=== PATIENT | male | born 1960 | race Caucasian/White ===

== ENCOUNTER 2021-02-13 14:50 | Inpatient (IN) | payer SELFPAY ==
[~2021-02-13] VITALS: Ht 165.1 cm; Wt 73.8 kg
--- NOTE | 2021-02-13 15:24 | NUR ---
PT. ARRIVES BY [facility] WITH C/O DIFFICULTY BREATHING, RA SATS 82%, HYPOXIA, FEVER, FATIGUE AND CP ONSET X 2 DAYS AGO. HIS 3 SONS AND ARE ILL WELL. PT A&O, RESPS EVEN AND UNLABORED, WILBERTO.
[2021-02-13] MEDS ORDERED: ACETAMINOPHEN 500 MG TABLET ONE (15:33)
[2021-02-13] MEDS ORDERED: CEFTRIAXONE 1,000 MG in DEXTROSE 5% 50 ML IVPB ONE (16:00)
[2021-02-13] MEDS ORDERED: SODIUM CHLORIDE FLUSH 10ML SYR IVF ONE (16:00)
[2021-02-13] MEDS ORDERED: ACETAMINOPHEN 500 MG TABLET PO ONE (16:00)
[2021-02-13] MEDS ORDERED: AZITHROMYCIN 500 MG in SODIUM CHLORIDE 0.9% 250 ML IV ONE (16:00)
[2021-02-13] MEDS ORDERED: PLEASE ENTER ALLERGIES MC SCH (16:00)
[2021-02-13] MEDS ORDERED: SODIUM CHLORIDE 0.9% 1,000ML IVBOLUS ONE (16:00)
--- NOTE | 2021-02-13 16:05 | NUR ---
abx started after BC x2
[2021-02-13 16:20] LABS: BASOPHILS % (AUTO) 1 % (0-1); EOSINOPHILS % (AUTO) 0 % (1-7); LYMPHOCYTES % (AUTO) 15 % (22-44); MEAN CORPUSCULAR HEMOGLOBIN 30.2 pg (27.5-34.5); MEAN CORPUSCULAR HGB CONC 34.4 g/dL (33.2-36.2); MEAN PLATELET VOLUME 8.2 fL (7.4-10.4); MONOCYTES % (AUTO) 6 % (2-9); NEUTROPHILS % (AUTO) 79 % (42-75); PLATELET COUNT 132 x10^3/uL (130-400); RED CELL DISTRIBUTION WIDTH 12.8 % (9.4-14.8)
[2021-02-13 16:23] LABS: ALANINE AMINOTRANSFERASE 28 U/L (12-78); ALBUMIN 2.5 g/dL (3.4-5.0); ANION GAP 8 mmol/L (5-15); CALCIUM 8.3 mg/dL (8.5-10.1); CHLORIDE 98 mmol/L (98-107); CREATININE 0.79 mg/dL (0.7-1.3)
[2021-02-13 16:25] LABS: ALKALINE PHOSPHATASE 48 U/L (45-117); BILIRUBIN,TOTAL 0.5 mg/dL (0.2-1.0); TOTAL PROTEIN 7.3 g/dL (6.4-8.2)
--- NOTE | 2021-02-13 16:49 | NUR ---
pt resting in bed, a&o, resps even and unlabored, nadn. fluids infusing, pt aware of plan to admit.
--- NOTE | 2021-02-13 16:56 | NUR ---
[facility] at bedside to discuss poc
[2021-02-13] MEDS ORDERED: CEFTRIAXONE 2,000 MG in DEXTROSE 5% 50 ML IV SCH (17:00)
[2021-02-13] MEDS ORDERED: SODIUM CHLORIDE 0.9% 1,000 ML IV SCH (17:00)
[2021-02-13] MEDS ORDERED: KETOROLAC 30 MG/1 ML IM PRN (17:00)
[2021-02-13] MEDS ORDERED: POTASSIUM CHLORIDE 20 MEQ TAB.ER.PRT PO ONE (17:00)
[2021-02-13] MEDS ORDERED: POTASSIUM CHLORIDE 20 MEQ TAB.ER.PRT ONE (17:08)
[2021-02-13 17:37] LABS: C-REACTIVE PROTEIN, QUANT 6.1 mg/dL (0.02-0.49)
--- NOTE | 2021-02-13 19:02 | NUR ---
PT RESTING IN BED, FLUDIS INFUSING, VSS, NADN.
[2021-02-13] MEDS: INSULIN LISPRO 100 UNITS/ML, PEN SQ-INSULIN SCH (21:00)
--- NOTE | 2021-02-13 21:56 | NUR ---
PT RESTING IN BED, VSS, NADN. ABLE TO USE BEDSIDE COMMODE.
--- NOTE | 2021-02-13 23:18 | NUR ---
PT SLEEPING IN BED, VSS, NADN
--- NOTE | 2021-02-14 00:58 | NUR ---
ATTEMPTED TO CALL REPORT X1. NURSE IS IN ROOM WITH ANOTHER PATIENT.
--- NOTE | 2021-02-14 01:09 | NUR ---
REPORT GIVEN TO GRIS KNOWLES
[2021-02-14 02:39] VITALS: BP 128/81
[2021-02-14] MEDS: ACETAMINOPHEN 325 MG TABLET PO PRN ×2 (02:57→21:27)
[2021-02-14] MEDS: ENOXAPARIN 40 MG/0.4 ML SQ SCH ×2 (03:00→16:13)
[2021-02-14 06:41] LABS: BASOPHILS % (AUTO) 0 % (0-1); EOSINOPHILS % (AUTO) 0 % (1-7); LYMPHOCYTES % (AUTO) 12 % (22-44); MEAN CORPUSCULAR HEMOGLOBIN 30.2 pg (27.5-34.5); MEAN CORPUSCULAR HGB CONC 33.8 g/dL (33.2-36.2); MEAN PLATELET VOLUME 8.1 fL (7.4-10.4); MONOCYTES % (AUTO) 3 % (2-9); NEUTROPHILS % (AUTO) 84 % (42-75); PLATELET COUNT 130 x10^3/uL (130-400); RED BLOOD COUNT 4.95 x10^6/uL (4.38-5.82); RED CELL DISTRIBUTION WIDTH 12.9 % (9.4-14.8)
[2021-02-14 07:38] LABS: ALBUMIN 2.1 g/dL (3.4-5.0); ANION GAP 7 mmol/L (5-15); CALCIUM 8.4 mg/dL (8.5-10.1); CHLORIDE 103 mmol/L (98-107)
[2021-02-14 07:43] LABS: ALANINE AMINOTRANSFERASE 27 U/L (12-78); ALKALINE PHOSPHATASE 43 U/L (45-117); BILIRUBIN,TOTAL 0.4 mg/dL (0.2-1.0); CREATININE 0.63 mg/dL (0.7-1.3)
[2021-02-14] MEDS: LACTOBACILLUS CHEW TABLET PO SCH ×2 (08:23→09:00)
[2021-02-14] MEDS: DEXAMETHASONE 4 MG/ML, 1ML IVPush SCH (08:23)
[2021-02-14] MEDS: INSULIN LISPRO 100 UNITS/ML, PEN SQ-INSULIN SCH ×4 (08:55→21:26)
[2021-02-14] MEDS: CHOLECALCIFEROL 5,000u TAB PO SCH (11:37)
[2021-02-14] MEDS: POTASSIUM CHLORIDE 20 MEQ TAB.ER.PRT PO SCH ×2 (11:37→16:13)
[2021-02-14] MEDS: ZINC SULFATE 220 MG CAPSULE PO SCH (11:37)
[2021-02-14] MEDS: GUAIFENESIN ER 600 MG TABLET PO SCH ×2 (11:37→21:27)
[2021-02-14 13:02] VITALS: BP 128/84
[2021-02-14] MEDS ORDERED: PHARMACY INSTRUCTION MC SCH (16:00)
[2021-02-14] MEDS ORDERED: CEFTRIAXONE 2,000 MG in DEXTROSE 5% 50 ML IV SCH (16:00)
[2021-02-14] MEDS: FUROSEMIDE 20 MG/2 ML IV SCH (16:13)
[2021-02-14] MEDS ORDERED: REMDESIVIR 200 MG in SODIUM CHLORIDE 0.9% 250 ML IVPB ONE (17:00)
[2021-02-14] MEDS ORDERED: OMNIPAQUE 350 MG/ML, 100ML BOTTLE ONE (17:21)
[2021-02-14] MEDS: ASCORBIC ACID 500 MG TABLET PO SCH (18:36)
[2021-02-14 21:00] VITALS: BP 142/83
[2021-02-14] MEDS ORDERED: INSULIN GLARGINE 100 UNITS/ML, PEN SQ-INSULIN SCH (21:00)
[2021-02-14 22:35] LABS: CLOSTRIDIUM DIFFICILE ANTIGEN NEGATIVE; CLOSTRIDIUM DIFFICILE TOXIN NEGATIVE (Negative)
[2021-02-15 03:00] VITALS: BP 123/77
[2021-02-15] MEDS: ENOXAPARIN 40 MG/0.4 ML SQ SCH ×2 (03:08→18:20)
[2021-02-15] MEDS: FUROSEMIDE 20 MG/2 ML IV SCH ×2 (09:09→18:19)
[2021-02-15] MEDS: CHOLECALCIFEROL 5,000u TAB PO SCH (09:09)
[2021-02-15] MEDS: POTASSIUM CHLORIDE 20 MEQ TAB.ER.PRT PO SCH ×3 (09:09→18:19)
[2021-02-15] MEDS: ZINC SULFATE 220 MG CAPSULE PO SCH (09:09)
[2021-02-15] MEDS: GUAIFENESIN ER 600 MG TABLET PO SCH ×2 (09:11→21:19)
[2021-02-15] MEDS: ASCORBIC ACID 500 MG TABLET PO SCH ×2 (09:11→18:19)
[2021-02-15] MEDS: DEXAMETHASONE 4 MG/ML, 1ML IVPush SCH (09:11)
[2021-02-15] MEDS: INSULIN GLARGINE 100 UNITS/ML, PEN SQ-INSULIN SCH ×2 (09:24→21:19)
[2021-02-15] MEDS: INSULIN LISPRO 100 UNITS/ML, PEN SQ-INSULIN SCH ×4 (09:25→21:19)
[2021-02-15 09:29] VITALS: BP 135/90
[2021-02-15 11:39] LABS: ALBUMIN 2.4 g/dL (3.4-5.0); ANION GAP 8 mmol/L (5-15); CALCIUM 8.8 mg/dL (8.5-10.1); CHLORIDE 103 mmol/L (98-107)
[2021-02-15 11:42] LABS: ALANINE AMINOTRANSFERASE 27 U/L (12-78); ALKALINE PHOSPHATASE 46 U/L (45-117); BILIRUBIN,TOTAL 0.5 mg/dL (0.2-1.0); CREATININE 0.73 mg/dL (0.7-1.3); TOTAL PROTEIN 7.5 g/dL (6.4-8.2)
[2021-02-15 14:00] VITALS: BP 118/78
[2021-02-15 16:32] VITALS: BP 111/75
[2021-02-15 16:47] VITALS: BP 138/80
[2021-02-15] MEDS: REMDESIVIR 100 MG in SODIUM CHLORIDE 0.9% 250 ML IVPB SCH (18:22)
[2021-02-15 19:33] VITALS: BP 116/78
[2021-02-16 00:42] VITALS: BP 106/60
[2021-02-16] MEDS: ENOXAPARIN 40 MG/0.4 ML SQ SCH ×2 (05:21→18:19)
[2021-02-16 05:55] LABS: ANION GAP 8 mmol/L (5-15); CALCIUM 8.8 mg/dL (8.5-10.1); CHLORIDE 103 mmol/L (98-107)
[2021-02-16 05:58] LABS: ALANINE AMINOTRANSFERASE 26 U/L (12-78); ALKALINE PHOSPHATASE 44 U/L (45-117); BILIRUBIN,TOTAL 0.4 mg/dL (0.2-1.0); CREATININE 0.67 mg/dL (0.7-1.3); TOTAL PROTEIN 7.3 g/dL (6.4-8.2)
[2021-02-16] MEDS: DEXAMETHASONE 4 MG/ML, 1ML IVPush SCH (08:03)
[2021-02-16] MEDS: POTASSIUM CHLORIDE 20 MEQ TAB.ER.PRT PO SCH ×3 (08:03→16:45)
[2021-02-16] MEDS: ASCORBIC ACID 500 MG TABLET PO SCH ×2 (08:03→16:45)
[2021-02-16] MEDS: GUAIFENESIN ER 600 MG TABLET PO SCH ×2 (08:03→21:41)
[2021-02-16] MEDS: FUROSEMIDE 20 MG/2 ML IV SCH ×2 (08:03→16:44)
[2021-02-16] MEDS: CHOLECALCIFEROL 5,000u TAB PO SCH (08:04)
[2021-02-16] MEDS: ZINC SULFATE 220 MG CAPSULE PO SCH (08:04)
[2021-02-16 08:11] VITALS: BP 111/73
[2021-02-16] MEDS: INSULIN LISPRO 100 UNITS/ML, PEN SQ-INSULIN SCH ×4 (08:37→21:41)
[2021-02-16] MEDS: INSULIN GLARGINE 100 UNITS/ML, PEN SQ-INSULIN SCH ×2 (08:38→21:42)
[2021-02-16] MEDS: ONDANSETRON 2MG/ML, 2ML IVPush PRN (09:26)
[2021-02-16 12:23] VITALS: BP 117/82
[2021-02-16 16:45] VITALS: BP 131/83
[2021-02-16] MEDS: REMDESIVIR 100 MG in SODIUM CHLORIDE 0.9% 250 ML IVPB SCH (18:19)
[2021-02-16 21:27] VITALS: BP 111/78
[2021-02-17 02:00] VITALS: BP 115/74
[2021-02-17 04:28] LABS: BASOPHILS % (AUTO) 0 % (0-1); EOSINOPHILS % (AUTO) 0 % (1-7); LYMPHOCYTES % (AUTO) 13 % (22-44); MEAN CORPUSCULAR HEMOGLOBIN 30.5 pg (27.5-34.5); MEAN PLATELET VOLUME 7.6 fL (7.4-10.4); MONOCYTES % (AUTO) 8 % (2-9); NEUTROPHILS % (AUTO) 79 % (42-75); PLATELET COUNT 248 x10^3/uL (130-400); RED BLOOD COUNT 5.25 x10^6/uL (4.38-5.82); RED CELL DISTRIBUTION WIDTH 13.1 % (9.4-14.8)
[2021-02-17 04:42] LABS: CHLORIDE 105 mmol/L (98-107)
[2021-02-17 04:52] LABS: ALANINE AMINOTRANSFERASE 27 U/L (12-78); ALBUMIN 1.9 g/dL (3.4-5.0); ALKALINE PHOSPHATASE 40 U/L (45-117); ANION GAP 8 mmol/L (5-15); BILIRUBIN,TOTAL 0.4 mg/dL (0.2-1.0); CALCIUM 8.7 mg/dL (8.5-10.1); CREATININE 0.74 mg/dL (0.7-1.3)
[2021-02-17] MEDS: ENOXAPARIN 40 MG/0.4 ML SQ SCH ×2 (06:01→17:09)
[2021-02-17 08:58] VITALS: BP 119/82
[2021-02-17] MEDS: ASCORBIC ACID 500 MG TABLET PO SCH ×2 (09:15→17:09)
[2021-02-17] MEDS: GUAIFENESIN ER 600 MG TABLET PO SCH ×2 (09:16→22:46)
[2021-02-17] MEDS: DEXAMETHASONE 4 MG/ML, 1ML IVPush SCH (09:17)
[2021-02-17] MEDS: FUROSEMIDE 20 MG/2 ML IV SCH ×2 (09:17→17:08)
[2021-02-17] MEDS: ZINC SULFATE 220 MG CAPSULE PO SCH (09:17)
[2021-02-17] MEDS: CHOLECALCIFEROL 5,000u TAB PO SCH (09:17)
[2021-02-17] MEDS: POTASSIUM CHLORIDE 20 MEQ TAB.ER.PRT PO SCH ×3 (09:37→17:09)
[2021-02-17] MEDS: INSULIN LISPRO 100 UNITS/ML, PEN SQ-INSULIN SCH ×4 (09:38→22:48)
[2021-02-17] MEDS: INSULIN GLARGINE 100 UNITS/ML, PEN SQ-INSULIN SCH ×2 (09:39→22:48)
[2021-02-17] MEDS: ONDANSETRON 2MG/ML, 2ML IVPush PRN (09:43)
[2021-02-17 10:43] LABS: ALBUMIN 2.3 g/dL (3.4-5.0); ANION GAP 9 mmol/L (5-15); CALCIUM 8.9 mg/dL (8.5-10.1); CHLORIDE 105 mmol/L (98-107)
[2021-02-17 10:47] LABS: ALANINE AMINOTRANSFERASE 31 U/L (12-78); ALKALINE PHOSPHATASE 44 U/L (45-117); BILIRUBIN,TOTAL 0.6 mg/dL (0.2-1.0); CREATININE 0.72 mg/dL (0.7-1.3); TOTAL PROTEIN 7.4 g/dL (6.4-8.2)
[2021-02-17 13:05] VITALS: BP 122/82
[2021-02-17 17:02] VITALS: BP 122/69
[2021-02-17] MEDS: REMDESIVIR 100 MG in SODIUM CHLORIDE 0.9% 250 ML IVPB SCH (17:08)
[2021-02-17 19:41] VITALS: BP 135/85
[2021-02-18 00:08] VITALS: BP 125/78
[2021-02-18 05:06] LABS: BASOPHILS % (AUTO) 0 % (0-1); EOSINOPHILS % (AUTO) 0 % (1-7); LYMPHOCYTES % (AUTO) 15 % (22-44); MEAN CORPUSCULAR HEMOGLOBIN 30.7 pg (27.5-34.5); MEAN CORPUSCULAR HGB CONC 34.3 g/dL (33.2-36.2); MEAN PLATELET VOLUME 7.9 fL (7.4-10.4); MONOCYTES % (AUTO) 9 % (2-9); NEUTROPHILS % (AUTO) 76 % (42-75); PLATELET COUNT 276 x10^3/uL (130-400); RED BLOOD COUNT 5.48 x10^6/uL (4.38-5.82); RED CELL DISTRIBUTION WIDTH 13.2 % (9.4-14.8)
[2021-02-18 05:14] LABS: ALANINE AMINOTRANSFERASE 32 U/L (12-78); ALBUMIN 2.2 g/dL (3.4-5.0); ANION GAP 8 mmol/L (5-15); CALCIUM 8.9 mg/dL (8.5-10.1); CHLORIDE 107 mmol/L (98-107); CREATININE 0.63 mg/dL (0.7-1.3)
[2021-02-18 05:16] LABS: ALKALINE PHOSPHATASE 43 U/L (45-117); BILIRUBIN,TOTAL 0.6 mg/dL (0.2-1.0)
[2021-02-18] MEDS: ENOXAPARIN 40 MG/0.4 ML SQ SCH ×2 (06:37→16:27)
[2021-02-18] MEDS: CHOLECALCIFEROL 5,000u TAB PO SCH (09:05)
[2021-02-18] MEDS: POTASSIUM CHLORIDE 20 MEQ TAB.ER.PRT PO SCH ×3 (09:05→16:27)
[2021-02-18] MEDS: ZINC SULFATE 220 MG CAPSULE PO SCH (09:05)
[2021-02-18] MEDS: GUAIFENESIN ER 600 MG TABLET PO SCH ×2 (09:05→22:40)
[2021-02-18] MEDS: FUROSEMIDE 20 MG/2 ML IV SCH ×2 (09:05→16:26)
[2021-02-18] MEDS: ASCORBIC ACID 500 MG TABLET PO SCH ×2 (09:05→16:27)
[2021-02-18] MEDS: INSULIN GLARGINE 100 UNITS/ML, PEN SQ-INSULIN SCH ×2 (09:05→22:41)
[2021-02-18] MEDS: DEXAMETHASONE 4 MG/ML, 1ML IVPush SCH (09:06)
[2021-02-18] MEDS: INSULIN LISPRO 100 UNITS/ML, PEN SQ-INSULIN SCH ×4 (09:06→22:41)
[2021-02-18 09:17] VITALS: BP 113/79
[2021-02-18 12:00] VITALS: BP 118/72
[2021-02-18] MEDS: ONDANSETRON 2MG/ML, 2ML IVPush PRN (12:18)
[2021-02-18 16:25] VITALS: BP 108/73
[2021-02-18] MEDS: REMDESIVIR 100 MG in SODIUM CHLORIDE 0.9% 250 ML IVPB SCH (16:26)
[2021-02-18 20:00] VITALS: BP 114/68
[2021-02-19 02:00] VITALS: BP 109/63
[2021-02-19] MEDS: ENOXAPARIN 40 MG/0.4 ML SQ SCH ×2 (05:00→16:44)
[2021-02-19] MEDS: INSULIN GLARGINE 100 UNITS/ML, PEN SQ-INSULIN SCH ×2 (07:45→22:15)
[2021-02-19] MEDS: INSULIN LISPRO 100 UNITS/ML, PEN SQ-INSULIN SCH ×4 (08:06→22:14)
[2021-02-19] MEDS: ZINC SULFATE 220 MG CAPSULE PO SCH (09:00)
[2021-02-19] MEDS: CHOLECALCIFEROL 5,000u TAB PO SCH (09:08)
[2021-02-19] MEDS: GUAIFENESIN ER 600 MG TABLET PO SCH ×2 (09:08→22:13)
[2021-02-19] MEDS: ASCORBIC ACID 500 MG TABLET PO SCH ×2 (09:08→16:45)
[2021-02-19] MEDS: POTASSIUM CHLORIDE 20 MEQ TAB.ER.PRT PO SCH ×3 (09:08→16:45)
[2021-02-19] MEDS: DEXAMETHASONE 4 MG/ML, 1ML IVPush SCH (09:08)
[2021-02-19] MEDS: FUROSEMIDE 20 MG/2 ML IV SCH ×2 (09:10→16:45)
[2021-02-19 09:17] VITALS: BP 127/85
[2021-02-19 14:00] VITALS: BP 102/72
[2021-02-19 19:43] VITALS: BP 109/76
[2021-02-20 01:22] VITALS: BP 116/80
[2021-02-20] MEDS: ENOXAPARIN 40 MG/0.4 ML SQ SCH ×2 (05:50→17:39)
[2021-02-20 06:15] LABS: BASOPHILS % (AUTO) 0 % (0-1); EOSINOPHILS % (AUTO) 1 % (1-7); LYMPHOCYTES % (AUTO) 16 % (22-44); MEAN CORPUSCULAR HEMOGLOBIN 30.4 pg (27.5-34.5); MEAN CORPUSCULAR HGB CONC 33.7 g/dL (33.2-36.2); MEAN PLATELET VOLUME 7.8 fL (7.4-10.4); MONOCYTES % (AUTO) 7 % (2-9); NEUTROPHILS % (AUTO) 76 % (42-75); PLATELET COUNT 288 x10^3/uL (130-400); RED BLOOD COUNT 5.58 x10^6/uL (4.38-5.82); RED CELL DISTRIBUTION WIDTH 13.5 % (9.4-14.8)
[2021-02-20 06:20] LABS: D-DIMER 0.45 ug/mlFEU (0.00-0.52)
[2021-02-20 06:38] LABS: ALBUMIN 2.2 g/dL (3.4-5.0); ANION GAP 10 mmol/L (5-15); CALCIUM 8.4 mg/dL (8.5-10.1); CHLORIDE 104 mmol/L (98-107)
[2021-02-20 06:42] LABS: ALANINE AMINOTRANSFERASE 29 U/L (12-78); ALKALINE PHOSPHATASE 50 U/L (45-117); BILIRUBIN,TOTAL 1.1 mg/dL (0.2-1.0); CREATININE 0.61 mg/dL (0.7-1.3); TOTAL PROTEIN 7.3 g/dL (6.4-8.2)
[2021-02-20] MEDS ORDERED: GLUCAGON 1 MG IM PRN (07:00)
[2021-02-20] MEDS: INSULIN LISPRO 100 UNITS/ML, PEN SQ-INSULIN SCH ×4 (07:00→20:44)
[2021-02-20] MEDS ORDERED: DEXTROSE 4 GM TAB.CHEW PO PRN (07:00)
[2021-02-20] MEDS ORDERED: DEXTROSE 50%, 50ML SYRINGE IVPush PRN (07:00)
[2021-02-20 07:16] LABS: HCT (SEDRATE) 48.7 % (39.2-51.8)
[2021-02-20 07:58] VITALS: BP 118/81
[2021-02-20] MEDS: DEXAMETHASONE 4 MG/ML, 1ML IVPush SCH (08:46)
[2021-02-20] MEDS: POTASSIUM CHLORIDE 20 MEQ TAB.ER.PRT PO SCH ×3 (08:47→17:38)
[2021-02-20] MEDS: ZINC SULFATE 220 MG CAPSULE PO SCH (08:47)
[2021-02-20] MEDS: GUAIFENESIN ER 600 MG TABLET PO SCH ×2 (08:47→20:44)
[2021-02-20] MEDS: ASCORBIC ACID 500 MG TABLET PO SCH ×2 (08:47→17:38)
[2021-02-20] MEDS: FUROSEMIDE 20 MG/2 ML IV SCH ×2 (08:47→17:38)
[2021-02-20] MEDS: CHOLECALCIFEROL 5,000u TAB PO SCH (08:47)
[2021-02-20] MEDS: ONDANSETRON 2MG/ML, 2ML IVPush PRN (08:47)
[2021-02-20] MEDS: ACETAMINOPHEN 325 MG TABLET PO PRN (12:36)
[2021-02-20 14:00] VITALS: BP 128/81
[2021-02-20] MEDS: ONDANSETRON ODT 4 MG PO PRN (17:38)
[2021-02-20 20:20] VITALS: BP 103/72
[2021-02-20] MEDS: INSULIN GLARGINE 100 UNITS/ML, PEN SQ-INSULIN SCH (20:45)
[2021-02-21 01:26] VITALS: BP 107/73
[2021-02-21] MEDS: ENOXAPARIN 40 MG/0.4 ML SQ SCH ×2 (05:03→17:25)
[2021-02-21] MEDS: INSULIN LISPRO 100 UNITS/ML, PEN SQ-INSULIN SCH ×4 (07:00→20:55)
[2021-02-21 07:40] VITALS: BP 108/77
[2021-02-21 09:01] LABS: BASOPHILS % (AUTO) 0 % (0-1); EOSINOPHILS % (AUTO) 2 % (1-7); LYMPHOCYTES % (AUTO) 15 % (22-44); MEAN CORPUSCULAR HEMOGLOBIN 30.7 pg (27.5-34.5); MEAN CORPUSCULAR HGB CONC 33.9 g/dL (33.2-36.2); MEAN PLATELET VOLUME 7.8 fL (7.4-10.4); MONOCYTES % (AUTO) 7 % (2-9); NEUTROPHILS % (AUTO) 76 % (42-75); PLATELET COUNT 350 x10^3/uL (130-400); RED CELL DISTRIBUTION WIDTH 13.2 % (9.4-14.8)
[2021-02-21 09:05] LABS: ALANINE AMINOTRANSFERASE 21 U/L (12-78); ALBUMIN 2.2 g/dL (3.4-5.0); ANION GAP 9 mmol/L (5-15); CALCIUM 8.8 mg/dL (8.5-10.1); CHLORIDE 101 mmol/L (98-107); CREATININE 0.64 mg/dL (0.7-1.3)
[2021-02-21] MEDS: CHOLECALCIFEROL 5,000u TAB PO SCH (09:05)
[2021-02-21] MEDS: ASCORBIC ACID 500 MG TABLET PO SCH ×2 (09:05→17:25)
[2021-02-21] MEDS: POTASSIUM CHLORIDE 20 MEQ TAB.ER.PRT PO SCH ×3 (09:05→17:25)
[2021-02-21] MEDS: GUAIFENESIN ER 600 MG TABLET PO SCH ×2 (09:05→20:55)
[2021-02-21] MEDS: ACETAMINOPHEN 325 MG TABLET PO PRN (09:05)
[2021-02-21] MEDS: ZINC SULFATE 220 MG CAPSULE PO SCH (09:05)
[2021-02-21] MEDS: DEXAMETHASONE 4 MG/ML, 1ML IVPush SCH (09:05)
[2021-02-21] MEDS: ONDANSETRON 2MG/ML, 2ML IVPush PRN (09:06)
[2021-02-21] MEDS: FUROSEMIDE 20 MG/2 ML IV SCH ×2 (09:06→17:25)
[2021-02-21 09:09] LABS: ALKALINE PHOSPHATASE 50 U/L (45-117); TOTAL PROTEIN 7.3 g/dL (6.4-8.2)
[2021-02-21 12:31] VITALS: BP 101/73
[2021-02-21 19:17] VITALS: BP 109/75
[2021-02-21] MEDS: INSULIN GLARGINE 100 UNITS/ML, PEN SQ-INSULIN SCH (20:56)
[2021-02-22 02:10] VITALS: BP 114/79
[2021-02-22] MEDS: ENOXAPARIN 40 MG/0.4 ML SQ SCH ×2 (05:17→17:17)
[2021-02-22 06:30] LABS: BASOPHILS % (AUTO) 1 % (0-1); EOSINOPHILS % (AUTO) 1 % (1-7); LYMPHOCYTES % (AUTO) 17 % (22-44); MEAN CORPUSCULAR HEMOGLOBIN 30.7 pg (27.5-34.5); MEAN CORPUSCULAR HGB CONC 33.9 g/dL (33.2-36.2); MEAN PLATELET VOLUME 7.6 fL (7.4-10.4); MONOCYTES % (AUTO) 8 % (2-9); NEUTROPHILS % (AUTO) 74 % (42-75); PLATELET COUNT 377 x10^3/uL (130-400); RED BLOOD COUNT 5.29 x10^6/uL (4.38-5.82); RED CELL DISTRIBUTION WIDTH 13.4 % (9.4-14.8)
[2021-02-22 06:31] LABS: HCT (SEDRATE) 48.9 % (39.2-51.8)
[2021-02-22 06:39] LABS: ALBUMIN 2.1 g/dL (3.4-5.0); ANION GAP 8 mmol/L (5-15); CALCIUM 8.6 mg/dL (8.5-10.1); CHLORIDE 102 mmol/L (98-107)
[2021-02-22 06:53] LABS: ALANINE AMINOTRANSFERASE 22 U/L (12-78); ALKALINE PHOSPHATASE 48 U/L (45-117); BILIRUBIN,TOTAL 0.9 mg/dL (0.2-1.0); CREATININE 0.66 mg/dL (0.7-1.3); TOTAL PROTEIN 7.2 g/dL (6.4-8.2)
[2021-02-22] MEDS: INSULIN LISPRO 100 UNITS/ML, PEN SQ-INSULIN SCH ×4 (07:00→20:28)
[2021-02-22 08:28] VITALS: BP 112/79
[2021-02-22] MEDS: ZINC SULFATE 220 MG CAPSULE PO SCH (08:52)
[2021-02-22] MEDS: ASCORBIC ACID 500 MG TABLET PO SCH ×2 (08:52→17:16)
[2021-02-22] MEDS: POTASSIUM CHLORIDE 20 MEQ TAB.ER.PRT PO SCH ×3 (08:52→17:16)
[2021-02-22] MEDS: ACETAMINOPHEN 325 MG TABLET PO PRN (08:52)
[2021-02-22] MEDS: ONDANSETRON ODT 4 MG PO PRN (08:52)
[2021-02-22] MEDS: CHOLECALCIFEROL 5,000u TAB PO SCH (08:53)
[2021-02-22] MEDS: DEXAMETHASONE 4 MG/ML, 1ML IVPush SCH (08:53)
[2021-02-22] MEDS: GUAIFENESIN ER 600 MG TABLET PO SCH ×2 (08:53→20:27)
[2021-02-22] MEDS: FUROSEMIDE 20 MG/2 ML IV SCH ×2 (08:53→17:17)
[2021-02-22 12:51] VITALS: BP 103/78
[2021-02-22 17:15] VITALS: BP 102/70
[2021-02-22 20:00] VITALS: BP 104/71
[2021-02-22] MEDS: INSULIN GLARGINE 100 UNITS/ML, PEN SQ-INSULIN SCH (20:28)
[2021-02-23 02:00] VITALS: BP 107/75
[2021-02-23] MEDS: ENOXAPARIN 40 MG/0.4 ML SQ SCH ×2 (05:22→17:05)
[2021-02-23] MEDS: INSULIN LISPRO 100 UNITS/ML, PEN SQ-INSULIN SCH ×4 (07:00→20:44)
[2021-02-23 08:19] VITALS: BP 112/73
[2021-02-23] MEDS: CHOLECALCIFEROL 5,000u TAB PO SCH (08:41)
[2021-02-23] MEDS: POTASSIUM CHLORIDE 20 MEQ TAB.ER.PRT PO SCH ×3 (08:41→16:28)
[2021-02-23] MEDS: ZINC SULFATE 220 MG CAPSULE PO SCH (08:41)
[2021-02-23] MEDS: GUAIFENESIN ER 600 MG TABLET PO SCH ×2 (08:42→20:43)
[2021-02-23] MEDS: ASCORBIC ACID 500 MG TABLET PO SCH ×2 (08:42→16:29)
[2021-02-23] MEDS: DEXAMETHASONE 4 MG/ML, 1ML IVPush SCH (08:42)
[2021-02-23] MEDS: FUROSEMIDE 20 MG/2 ML IV SCH ×2 (08:42→16:29)
[2021-02-23 12:57] VITALS: BP 108/76
[2021-02-23 19:34] VITALS: BP 105/72
[2021-02-23] MEDS: INSULIN GLARGINE 100 UNITS/ML, PEN SQ-INSULIN SCH (20:43)
[2021-02-24 02:26] VITALS: BP 118/81
[2021-02-24] MEDS: ENOXAPARIN 40 MG/0.4 ML SQ SCH ×2 (05:47→17:54)
[2021-02-24] MEDS: INSULIN LISPRO 100 UNITS/ML, PEN SQ-INSULIN SCH ×4 (07:00→19:19)
[2021-02-24 08:24] VITALS: BP 114/80
[2021-02-24] MEDS: ASCORBIC ACID 500 MG TABLET PO SCH ×2 (08:28→16:28)
[2021-02-24] MEDS: GUAIFENESIN ER 600 MG TABLET PO SCH ×2 (08:28→19:19)
[2021-02-24] MEDS: CHOLECALCIFEROL 5,000u TAB PO SCH (08:29)
[2021-02-24] MEDS: ZINC SULFATE 220 MG CAPSULE PO SCH (08:29)
[2021-02-24] MEDS: FUROSEMIDE 20 MG/2 ML IV SCH ×2 (08:29→16:29)
[2021-02-24] MEDS: POTASSIUM CHLORIDE 20 MEQ TAB.ER.PRT PO SCH ×3 (08:29→16:28)
[2021-02-24] MEDS: DEXAMETHASONE 4 MG/ML, 1ML IVPush SCH (08:29)
[2021-02-24 09:20] LABS: BASOPHILS % (AUTO) 1 % (0-1); EOSINOPHILS % (AUTO) 1 % (1-7); LYMPHOCYTES % (AUTO) 18 % (22-44); MEAN CORPUSCULAR HEMOGLOBIN 30.7 pg (27.5-34.5); MEAN CORPUSCULAR HGB CONC 34.3 g/dL (33.2-36.2); MEAN PLATELET VOLUME 7.3 fL (7.4-10.4); MONOCYTES % (AUTO) 8 % (2-9); NEUTROPHILS % (AUTO) 73 % (42-75); PLATELET COUNT 410 x10^3/uL (130-400); RED BLOOD COUNT 5.38 x10^6/uL (4.38-5.82); RED CELL DISTRIBUTION WIDTH 13.3 % (9.4-14.8)
[2021-02-24 09:22] LABS: HCT (SEDRATE) 48.1 % (39.2-51.8)
[2021-02-24 09:35] LABS: ALBUMIN 2.2 g/dL (3.4-5.0); ANION GAP 11 mmol/L (5-15); CALCIUM 9.2 mg/dL (8.5-10.1); CHLORIDE 101 mmol/L (98-107)
[2021-02-24 09:36] LABS: D-DIMER 0.36 ug/mlFEU (0.00-0.52)
[2021-02-24 09:42] LABS: ALANINE AMINOTRANSFERASE 21 U/L (12-78); ALKALINE PHOSPHATASE 49 U/L (45-117); BILIRUBIN,TOTAL 0.8 mg/dL (0.2-1.0); C-REACTIVE PROTEIN, QUANT 0.66 mg/dL (0.02-0.49); CREATININE 0.76 mg/dL (0.7-1.3); TOTAL PROTEIN 7.5 g/dL (6.4-8.2)
[2021-02-24 13:00] VITALS: BP 109/75
[2021-02-24 19:10] VITALS: BP 107/74
[2021-02-24] MEDS: INSULIN GLARGINE 100 UNITS/ML, PEN SQ-INSULIN SCH (19:21)
[2021-02-25 01:27] VITALS: BP 109/79
[2021-02-25] MEDS: ENOXAPARIN 40 MG/0.4 ML SQ SCH ×2 (05:30→17:26)
[2021-02-25 08:16] VITALS: BP 116/80
[2021-02-25] MEDS: CHOLECALCIFEROL 5,000u TAB PO SCH (08:19)
[2021-02-25] MEDS: ZINC SULFATE 220 MG CAPSULE PO SCH (08:19)
[2021-02-25] MEDS: ASCORBIC ACID 500 MG TABLET PO SCH ×2 (08:19→16:35)
[2021-02-25] MEDS: GUAIFENESIN ER 600 MG TABLET PO SCH ×2 (08:19→20:26)
[2021-02-25] MEDS: FUROSEMIDE 20 MG/2 ML IV SCH ×2 (08:19→16:35)
[2021-02-25] MEDS: POTASSIUM CHLORIDE 20 MEQ TAB.ER.PRT PO SCH ×3 (08:19→16:35)
[2021-02-25] MEDS: INSULIN LISPRO 100 UNITS/ML, PEN SQ-INSULIN SCH ×4 (08:19→20:30)
[2021-02-25] MEDS: INSULIN GLARGINE 100 UNITS/ML, PEN SQ-INSULIN SCH ×2 (08:23→20:29)
[2021-02-25 12:37] VITALS: BP 107/69
[2021-02-25] MEDS: methylPREDNISolone SOD SUCC 40 MG/ML IV SCH ×2 (12:38→20:26)
[2021-02-25 19:37] VITALS: BP 113/74
[2021-02-26 01:48] VITALS: BP 109/68
[2021-02-26] MEDS: methylPREDNISolone SOD SUCC 40 MG/ML IV SCH ×3 (05:29→20:35)
[2021-02-26] MEDS: ENOXAPARIN 40 MG/0.4 ML SQ SCH ×2 (05:30→17:16)
[2021-02-26 07:19] VITALS: BP 111/73
[2021-02-26] MEDS: INSULIN GLARGINE 100 UNITS/ML, PEN SQ-INSULIN SCH ×2 (08:05→20:38)
[2021-02-26] MEDS: INSULIN LISPRO 100 UNITS/ML, PEN SQ-INSULIN SCH ×4 (08:05→20:37)
[2021-02-26] MEDS: POTASSIUM CHLORIDE 20 MEQ TAB.ER.PRT PO SCH ×3 (08:05→17:17)
[2021-02-26] MEDS: GUAIFENESIN ER 600 MG TABLET PO SCH ×2 (08:06→20:35)
[2021-02-26] MEDS: ZINC SULFATE 220 MG CAPSULE PO SCH (08:06)
[2021-02-26] MEDS: FUROSEMIDE 20 MG/2 ML IV SCH ×2 (08:06→17:17)
[2021-02-26] MEDS: CHOLECALCIFEROL 5,000u TAB PO SCH (08:06)
[2021-02-26] MEDS: ASCORBIC ACID 500 MG TABLET PO SCH ×2 (08:06→17:16)
[2021-02-26 08:47] LABS: BASOPHILS % (AUTO) 0 % (0-1); EOSINOPHILS % (AUTO) 0 % (1-7); LYMPHOCYTES % (AUTO) 12 % (22-44); MEAN CORPUSCULAR HEMOGLOBIN 30.6 pg (27.5-34.5); MEAN CORPUSCULAR HGB CONC 34.2 g/dL (33.2-36.2); MEAN PLATELET VOLUME 7.2 fL (7.4-10.4); MONOCYTES % (AUTO) 4 % (2-9); NEUTROPHILS % (AUTO) 84 % (42-75); PLATELET COUNT 415 x10^3/uL (130-400); RED BLOOD COUNT 5.47 x10^6/uL (4.38-5.82); RED CELL DISTRIBUTION WIDTH 13.3 % (9.4-14.8)
[2021-02-26 08:51] LABS: ALBUMIN 2.5 g/dL (3.4-5.0); ANION GAP 8 mmol/L (5-15); CHLORIDE 101 mmol/L (98-107)
[2021-02-26 08:55] LABS: D-DIMER 0.31 ug/mlFEU (0.00-0.52)
[2021-02-26 09:01] LABS: ALANINE AMINOTRANSFERASE 26 U/L (12-78); ALKALINE PHOSPHATASE 50 U/L (45-117); BILIRUBIN,TOTAL 0.7 mg/dL (0.2-1.0); C-REACTIVE PROTEIN, QUANT 0.25 mg/dL (0.02-0.49); CREATININE 0.68 mg/dL (0.7-1.3); TOTAL PROTEIN 7.7 g/dL (6.4-8.2)
[2021-02-26 12:47] VITALS: BP 108/77
[2021-02-26 19:48] VITALS: BP 113/82
[2021-02-27 00:20] VITALS: BP 105/71
[2021-02-27] MEDS: methylPREDNISolone SOD SUCC 40 MG/ML IV SCH ×2 (04:40→12:43)
[2021-02-27] MEDS: ENOXAPARIN 40 MG/0.4 ML SQ SCH ×2 (04:40→17:18)
[2021-02-27 07:49] VITALS: BP 122/85
[2021-02-27] MEDS: INSULIN GLARGINE 100 UNITS/ML, PEN SQ-INSULIN SCH ×2 (08:56→21:02)
[2021-02-27] MEDS: ASCORBIC ACID 500 MG TABLET PO SCH ×2 (08:57→17:17)
[2021-02-27] MEDS: GUAIFENESIN ER 600 MG TABLET PO SCH ×2 (08:57→21:02)
[2021-02-27] MEDS: FUROSEMIDE 20 MG/2 ML IV SCH ×2 (08:57→17:18)
[2021-02-27] MEDS: POTASSIUM CHLORIDE 20 MEQ TAB.ER.PRT PO SCH ×3 (08:57→17:17)
[2021-02-27] MEDS: INSULIN LISPRO 100 UNITS/ML, PEN SQ-INSULIN SCH ×4 (08:57→21:01)
[2021-02-27] MEDS: CHOLECALCIFEROL 5,000u TAB PO SCH (08:58)
[2021-02-27] MEDS: ZINC SULFATE 220 MG CAPSULE PO SCH (08:58)
[2021-02-27 12:33] VITALS: BP 133/78
[2021-02-27] MEDS: DEXAMETHASONE 4 MG/ML, 1ML IVPush SCH ×2 (17:19→22:36)
[2021-02-27 19:35] VITALS: BP 120/84
[2021-02-28 00:38] VITALS: BP 104/70
[2021-02-28] MEDS: ENOXAPARIN 40 MG/0.4 ML SQ SCH ×2 (05:06→17:48)
[2021-02-28] MEDS: DEXAMETHASONE 4 MG/ML, 1ML IVPush SCH ×4 (05:06→22:32)
[2021-02-28] MEDS: GUAIFENESIN ER 600 MG TABLET PO SCH ×2 (08:35→20:01)
[2021-02-28] MEDS: POTASSIUM CHLORIDE 20 MEQ TAB.ER.PRT PO SCH ×3 (08:35→17:48)
[2021-02-28] MEDS: ZINC SULFATE 220 MG CAPSULE PO SCH (08:35)
[2021-02-28] MEDS: FUROSEMIDE 20 MG/2 ML IV SCH ×2 (08:36→17:47)
[2021-02-28] MEDS: CHOLECALCIFEROL 5,000u TAB PO SCH (08:36)
[2021-02-28] MEDS: ASCORBIC ACID 500 MG TABLET PO SCH ×2 (08:36→17:48)
[2021-02-28 08:45] VITALS: BP 131/85
[2021-02-28] MEDS: INSULIN GLARGINE 100 UNITS/ML, PEN SQ-INSULIN SCH ×2 (08:47→20:54)
[2021-02-28] MEDS: INSULIN LISPRO 100 UNITS/ML, PEN SQ-INSULIN SCH ×2 (08:48→11:41)
[2021-02-28] MEDS: INSULIN REGULAR 100 UNITS/ML, 3ML VIAL SQ-INSULIN SCH ×2 (16:00→20:02)
[2021-02-28 18:50] VITALS: BP 126/82
[2021-03-01 01:38] VITALS: BP 119/78
[2021-03-01 04:22] LABS: BASOPHILS % (AUTO) 0 % (0-1); EOSINOPHILS % (AUTO) 0 % (1-7); LYMPHOCYTES % (AUTO) 9 % (22-44); MEAN CORPUSCULAR HEMOGLOBIN 30.2 pg (27.5-34.5); MEAN CORPUSCULAR HGB CONC 33.7 g/dL (33.2-36.2); MEAN PLATELET VOLUME 7.7 fL (7.4-10.4); MONOCYTES % (AUTO) 6 % (2-9); NEUTROPHILS % (AUTO) 84 % (42-75); PLATELET COUNT 302 x10^3/uL (130-400); RED BLOOD COUNT 5.41 x10^6/uL (4.38-5.82); RED CELL DISTRIBUTION WIDTH 13.5 % (9.4-14.8)
[2021-03-01 04:32] LABS: ANION GAP 9 mmol/L (5-15); CALCIUM 8.9 mg/dL (8.5-10.1); CHLORIDE 104 mmol/L (98-107); CREATININE 0.81 mg/dL (0.7-1.3)
[2021-03-01] MEDS: DEXAMETHASONE 4 MG/ML, 1ML IVPush SCH ×4 (04:36→22:05)
[2021-03-01] MEDS: ENOXAPARIN 40 MG/0.4 ML SQ SCH ×2 (05:00→17:34)
[2021-03-01 08:36] VITALS: BP 120/76
[2021-03-01] MEDS: INSULIN REGULAR 100 UNITS/ML, 3ML VIAL SQ-INSULIN SCH ×4 (08:50→20:40)
[2021-03-01] MEDS: INSULIN GLARGINE 100 UNITS/ML, PEN SQ-INSULIN SCH ×2 (08:51→20:41)
[2021-03-01] MEDS: FUROSEMIDE 20 MG/2 ML IV SCH ×2 (08:51→17:31)
[2021-03-01] MEDS: GUAIFENESIN ER 600 MG TABLET PO SCH ×2 (08:51→20:39)
[2021-03-01] MEDS: ASCORBIC ACID 500 MG TABLET PO SCH ×2 (08:51→17:31)
[2021-03-01] MEDS: POTASSIUM CHLORIDE 20 MEQ TAB.ER.PRT PO SCH ×3 (08:51→17:36)
[2021-03-01] MEDS: ZINC SULFATE 220 MG CAPSULE PO SCH (08:51)
[2021-03-01] MEDS: CHOLECALCIFEROL 5,000u TAB PO SCH (08:51)
[2021-03-01 13:49] VITALS: BP 100/66
[2021-03-01 20:37] VITALS: BP 112/75
[2021-03-02 01:23] VITALS: BP 109/79
[2021-03-02 04:47] LABS: CHLORIDE 106 mmol/L (98-107)
[2021-03-02 04:58] LABS: ANION GAP 10 mmol/L (5-15); CALCIUM 8.8 mg/dL (8.5-10.1); CREATININE 0.72 mg/dL (0.7-1.3)
[2021-03-02] MEDS: DEXAMETHASONE 4 MG/ML, 1ML IVPush SCH ×4 (05:26→22:35)
[2021-03-02] MEDS: ENOXAPARIN 40 MG/0.4 ML SQ SCH ×2 (05:26→17:13)
[2021-03-02 08:36] VITALS: BP 114/73
[2021-03-02] MEDS: ZINC SULFATE 220 MG CAPSULE PO SCH (09:00)
[2021-03-02] MEDS: FUROSEMIDE 20 MG/2 ML IV SCH ×2 (09:54→17:13)
[2021-03-02] MEDS: CHOLECALCIFEROL 5,000u TAB PO SCH (09:54)
[2021-03-02] MEDS: GUAIFENESIN ER 600 MG TABLET PO SCH ×2 (09:54→20:24)
[2021-03-02] MEDS: ASCORBIC ACID 500 MG TABLET PO SCH ×2 (09:54→17:13)
[2021-03-02] MEDS: POTASSIUM CHLORIDE 20 MEQ TAB.ER.PRT PO SCH ×3 (09:55→17:13)
[2021-03-02] MEDS: INSULIN GLARGINE 100 UNITS/ML, PEN SQ-INSULIN SCH ×2 (09:56→20:32)
[2021-03-02] MEDS: INSULIN REGULAR 100 UNITS/ML, 3ML VIAL SQ-INSULIN SCH ×4 (09:56→20:32)
[2021-03-02 14:12] VITALS: BP 132/83
[2021-03-02 20:19] VITALS: BP 118/83
[2021-03-02] MEDS ORDERED: SODIUM CHLORIDE 0.9%, 500ML IVBOLUS ONE (22:30)
[2021-03-03 02:00] VITALS: BP 115/82
[2021-03-03 03:54] LABS: ANION GAP 7 mmol/L (5-15); CALCIUM 8.6 mg/dL (8.5-10.1); CHLORIDE 107 mmol/L (98-107); CREATININE 0.69 mg/dL (0.7-1.3)
[2021-03-03] MEDS: DEXAMETHASONE 4 MG/ML, 1ML IVPush SCH ×4 (05:18→22:22)
[2021-03-03] MEDS: ENOXAPARIN 40 MG/0.4 ML SQ SCH ×2 (05:18→16:49)
[2021-03-03] MEDS: POTASSIUM CHLORIDE 20 MEQ TAB.ER.PRT PO SCH ×3 (08:14→16:49)
[2021-03-03] MEDS: GUAIFENESIN ER 600 MG TABLET PO SCH ×2 (08:14→20:34)
[2021-03-03] MEDS: CHOLECALCIFEROL 5,000u TAB PO SCH (08:14)
[2021-03-03] MEDS: FUROSEMIDE 20 MG/2 ML IV SCH ×2 (08:14→16:49)
[2021-03-03] MEDS: ZINC SULFATE 220 MG CAPSULE PO SCH (08:14)
[2021-03-03] MEDS: ASCORBIC ACID 500 MG TABLET PO SCH ×2 (08:14→16:49)
[2021-03-03] MEDS: INSULIN GLARGINE 100 UNITS/ML, PEN SQ-INSULIN SCH ×2 (08:15→20:35)
[2021-03-03] MEDS: INSULIN REGULAR 100 UNITS/ML, 3ML VIAL SQ-INSULIN SCH ×4 (08:15→20:35)
[2021-03-03 09:13] VITALS: BP 108/74
[2021-03-03 14:30] VITALS: BP 109/77
[2021-03-03] MEDS: ACETAMINOPHEN 325 MG TABLET PO PRN (17:34)
[2021-03-03] MEDS ORDERED: SODIUM CHLORIDE 0.9%, 500ML IVBOLUS ONE (20:30)
[2021-03-03 20:40] VITALS: BP 111/73
[2021-03-04 01:23] VITALS: BP 123/81
[2021-03-04] MEDS: ENOXAPARIN 40 MG/0.4 ML SQ SCH ×2 (05:22→16:59)
[2021-03-04] MEDS: DEXAMETHASONE 4 MG/ML, 1ML IVPush SCH ×4 (05:22→21:36)
[2021-03-04 06:36] LABS: ANION GAP 7 mmol/L (5-15); CALCIUM 8.9 mg/dL (8.5-10.1); CHLORIDE 103 mmol/L (98-107)
[2021-03-04 06:38] LABS: CREATININE 0.55 mg/dL (0.7-1.3)
[2021-03-04 06:39] LABS: BASOPHILS % (AUTO) 0 % (0-1); EOSINOPHILS % (AUTO) 0 % (1-7); LYMPHOCYTES % (AUTO) 5 % (22-44); MEAN CORPUSCULAR HEMOGLOBIN 30.2 pg (27.5-34.5); MEAN CORPUSCULAR HGB CONC 33.5 g/dL (33.2-36.2); MEAN PLATELET VOLUME 7.7 fL (7.4-10.4); MONOCYTES % (AUTO) 6 % (2-9); NEUTROPHILS % (AUTO) 88 % (42-75); PLATELET COUNT 198 x10^3/uL (130-400); RED BLOOD COUNT 5.34 x10^6/uL (4.38-5.82); RED CELL DISTRIBUTION WIDTH 13.5 % (9.4-14.8)
[2021-03-04 07:55] VITALS: BP 134/82
[2021-03-04] MEDS: INSULIN REGULAR 100 UNITS/ML, 3ML VIAL SQ-INSULIN SCH (08:07)
[2021-03-04] MEDS: FUROSEMIDE 20 MG/2 ML IV SCH (08:07)
[2021-03-04] MEDS: GUAIFENESIN ER 600 MG TABLET PO SCH ×2 (08:08→21:31)
[2021-03-04] MEDS: POTASSIUM CHLORIDE 20 MEQ TAB.ER.PRT PO SCH ×3 (08:08→16:59)
[2021-03-04] MEDS: CHOLECALCIFEROL 5,000u TAB PO SCH (08:08)
[2021-03-04] MEDS: ASCORBIC ACID 500 MG TABLET PO SCH ×2 (08:08→16:58)
[2021-03-04] MEDS: INSULIN GLARGINE 100 UNITS/ML, PEN SQ-INSULIN SCH ×2 (08:09→21:35)
[2021-03-04] MEDS: ZINC SULFATE 220 MG CAPSULE PO SCH (08:09)
[2021-03-04] MEDS ORDERED: METOLAZONE 5 MG TABLET PO ONE (09:00)
[2021-03-04] MEDS ORDERED: FUROSEMIDE 40 MG/4 ML IV ONE (09:00)
[2021-03-04] MEDS ORDERED: OMNIPAQUE 350 MG/ML, 75ML BOTTLE ONE (09:28)
[2021-03-04] MEDS: INSULIN LISPRO 100 UNITS/ML, PEN SQ-INSULIN SCH ×3 (13:03→21:34)
[2021-03-04 17:25] VITALS: BP 134/91
[2021-03-04 20:21] VITALS: BP 128/86
[2021-03-05 01:56] VITALS: BP 123/82
[2021-03-05] MEDS: DEXAMETHASONE 4 MG/ML, 1ML IVPush SCH ×3 (04:18→21:44)
[2021-03-05] MEDS: ENOXAPARIN 40 MG/0.4 ML SQ SCH ×2 (05:43→16:18)
[2021-03-05] MEDS: ZINC SULFATE 220 MG CAPSULE PO SCH (07:37)
[2021-03-05] MEDS: POTASSIUM CHLORIDE 20 MEQ TAB.ER.PRT PO SCH ×3 (07:37→16:17)
[2021-03-05] MEDS: GUAIFENESIN ER 600 MG TABLET PO SCH ×2 (07:37→21:41)
[2021-03-05] MEDS: ASCORBIC ACID 500 MG TABLET PO SCH ×2 (07:37→16:18)
[2021-03-05] MEDS: CHOLECALCIFEROL 5,000u TAB PO SCH (07:37)
[2021-03-05] MEDS: INSULIN LISPRO 100 UNITS/ML, PEN SQ-INSULIN SCH ×4 (07:38→21:42)
[2021-03-05] MEDS: INSULIN GLARGINE 100 UNITS/ML, PEN SQ-INSULIN SCH ×2 (07:39→21:43)
[2021-03-05 07:48] VITALS: BP 123/83
[2021-03-05 13:38] VITALS: BP 111/74
[2021-03-05 19:38] VITALS: BP 116/79
[2021-03-06 00:44] VITALS: BP 115/79
[2021-03-06] MEDS: ENOXAPARIN 40 MG/0.4 ML SQ SCH ×2 (05:48→17:21)
[2021-03-06 06:33] LABS: CHLORIDE 101 mmol/L (98-107)
[2021-03-06 06:42] LABS: ANION GAP 7 mmol/L (5-15); CALCIUM 8.6 mg/dL (8.5-10.1); CREATININE 0.49 mg/dL (0.7-1.3)
[2021-03-06 08:38] VITALS: BP 117/79
[2021-03-06] MEDS: INSULIN LISPRO 100 UNITS/ML, PEN SQ-INSULIN SCH ×4 (08:53→21:00)
[2021-03-06] MEDS: INSULIN GLARGINE 100 UNITS/ML, PEN SQ-INSULIN SCH ×2 (08:54→21:00)
[2021-03-06] MEDS: GUAIFENESIN ER 600 MG TABLET PO SCH ×2 (09:50→21:00)
[2021-03-06] MEDS: DEXAMETHASONE 4 MG/ML, 1ML IVPush SCH ×2 (09:51→22:54)
[2021-03-06] MEDS: ZINC SULFATE 220 MG CAPSULE PO SCH (09:51)
[2021-03-06] MEDS: POTASSIUM CHLORIDE 20 MEQ TAB.ER.PRT PO SCH ×3 (09:51→17:21)
[2021-03-06] MEDS: CHOLECALCIFEROL 5,000u TAB PO SCH (09:51)
[2021-03-06] MEDS: ASCORBIC ACID 500 MG TABLET PO SCH ×2 (09:51→17:21)
[2021-03-06 15:42] VITALS: BP 116/82
[2021-03-06 21:59] VITALS: BP 124/80
[2021-03-07 00:58] VITALS: BP 119/83
[2021-03-07] MEDS: ENOXAPARIN 40 MG/0.4 ML SQ SCH ×2 (05:14→17:35)
[2021-03-07] MEDS: ZINC SULFATE 220 MG CAPSULE PO SCH (08:00)
[2021-03-07] MEDS: INSULIN LISPRO 100 UNITS/ML, PEN SQ-INSULIN SCH ×4 (08:00→21:16)
[2021-03-07] MEDS: ASCORBIC ACID 500 MG TABLET PO SCH ×2 (08:01→16:26)
[2021-03-07] MEDS: GUAIFENESIN ER 600 MG TABLET PO SCH ×2 (08:01→21:04)
[2021-03-07] MEDS: POTASSIUM CHLORIDE 20 MEQ TAB.ER.PRT PO SCH ×3 (08:01→16:24)
[2021-03-07] MEDS: CHOLECALCIFEROL 5,000u TAB PO SCH (08:01)
[2021-03-07] MEDS: INSULIN GLARGINE 100 UNITS/ML, PEN SQ-INSULIN SCH ×2 (08:02→21:16)
[2021-03-07 09:14] VITALS: BP 111/73
[2021-03-07] MEDS: DEXAMETHASONE 4 MG/ML, 1ML IVPush SCH ×2 (10:28→21:26)
[2021-03-07] MEDS ORDERED: DEXA4TAB66 PO (10:37)
[2021-03-07] MEDS ORDERED: GUAI600T31 PO (10:37)
[2021-03-07] MEDS ORDERED: METF10007 PO (10:56)
[2021-03-07 13:24] VITALS: BP 130/89
[2021-03-07 19:31] VITALS: BP 126/84
[2021-03-08 01:51] VITALS: BP 118/76
[2021-03-08] MEDS: ENOXAPARIN 40 MG/0.4 ML SQ SCH (05:27)
[2021-03-08] MEDS: INSULIN LISPRO 100 UNITS/ML, PEN SQ-INSULIN SCH ×2 (07:00→11:23)
[2021-03-08 07:57] VITALS: BP 116/76
[2021-03-08] MEDS: ASCORBIC ACID 500 MG TABLET PO SCH (09:02)
[2021-03-08] MEDS: POTASSIUM CHLORIDE 20 MEQ TAB.ER.PRT PO SCH ×2 (09:02→11:23)
[2021-03-08] MEDS: ZINC SULFATE 220 MG CAPSULE PO SCH (09:02)
[2021-03-08] MEDS: CHOLECALCIFEROL 5,000u TAB PO SCH (09:02)
[2021-03-08] MEDS: GUAIFENESIN ER 600 MG TABLET PO SCH (09:02)
[2021-03-08] MEDS: INSULIN GLARGINE 100 UNITS/ML, PEN SQ-INSULIN SCH (09:03)
[2021-03-08] MEDS: DEXAMETHASONE 4 MG/ML, 1ML IVPush SCH (11:21)
[2021-03-08 15:59] VITALS: BP 120/81
[2021-03-08] MEDS ORDERED: metFORMIN 500 MG TABLET PO SCH (17:00)
[2021-03-08] MEDS ORDERED: DEXAMETHASONE 4 MG TABLET PO SCH (17:00)
== END 2021-03-08 14:10 | disposition home or self-care (01) | DRG 177 ==
LOC: ED 15:20 → EDIP 16:59 → 4WST 02-14 02:13
PROVIDERS: ADMIT Family Medicine; ATTEND Internal Medicine
PROC: XW033E5 Introduction of Remdesivir Anti-infective into Peripheral Vein, Percutaneous Approach, New Technology Group 5 (ICD-10-PCS; principal; 2021-02-14)
DX: U07.1 COVID-19 (principal); J96.01 Acute respiratory failure with hypoxia; J12.82 Pneumonia due to coronavirus disease 2019; E87.1 Hypo-osmolality and hyponatremia; E11.9 Type 2 diabetes mellitus without complications; E87.6 Hypokalemia
CPT/HCPCS: 36415; 36600; 71045; 71275; 80048; 80053; 82728; 82803; 82947; 82962; 83036; 83605; 83615; 83735; 83880; 84100; 84145; 85025; 85379; 85384; 85651; 86140; 87040; 87324; 93306; 93356; 96365; 96375; G0378; J0456; J0696; J1100; J1650; J1815; J1940; J2405; Q0162; Q9967; U0005; J2920; J7030; J7040; J7050; U0003